=== PATIENT | female | born 2000 | race Caucasian/White ===

== ENCOUNTER 2019-03-03 21:58 | Emergency (ER) | payer MEDICAID, OTHER ==
[~2019-03-03] VITALS: Ht 157.5 cm; Wt 58.7 kg
[2019-03-03 22:03] VITALS: BP 135/92; PULSE 73; RESP 18; Ht 157.5 cm; Wt 58.7 kg
--- NOTE | 2019-03-04 01:25 | ERD ---
ER Documentation Chief Complaint Chief Complaint COUGH X'S 1 MONTH, SOB HPI This is a 18-year-old female presents emergency department with complaints of on and off cough for about a month, productive cough for the last 3 days. LMP: February 07, 2018. G0, . Denies headache, head injury, loss of consciousness, dizziness, neck pain, neck stiffness, throat pain, difficulty swallowing, difficulty breathing lying flat, shoulder pain, chest pain, back pain, abdominal pain, nausea, vomiting, constipation, diarrhea, urinary symptoms, or possibility being pregnan t, loss of bowel and bladder control, trauma, injury, falls, difficulty walking due to pain, numbness or tingling sensation, calf pain, recent travel, recent major surgery in the last 3 weeks, calf pain, recent long travel, recent exposure to any illness, recent antibiotic use in the last 3 months, fever, chills, seizures. Past medical history: Denies. Surgical history: Denies. Social: Denies smoking, use of alcoholic beverages, use of illegal drugs. ROS All systems reviewed and are negative except as per history of present illness. Medications Home Meds Active Scripts Benzonatate* (Tessalon Perle*) 100 Mg Capsule, 100 MG PO Q8H PRN for COUGH, #15 CAP Prov:PASILABANLAURI 03/04/19 Cyclobenzaprine Hcl* (Cyclobenzaprine Hcl*) 10 Mg Tablet, 10 MG PO TID PRN for MUSCLE SPASMS, #15 TAB Prov:JAMARIILALAURI TODD 03/04/19 Ibuprofen* (Motrin*) 600 Mg Tab, 600 MG PO Q6H PRN for PAIN AND OR ELEVATED TEMP, #30 TAB Prov:PASILABANLAURI 03/04/19 Azithromycin* (Zithromax*) 250 Mg Tablet, 250 MG PO .ZPACK DIRECTED, #6 TAB TAKE 500 MG (2 TABS) THE FIRST DAY THEN 250 MG (1 TAB) DAYS 2-5 Prov:PASILALAURI TODD F 03/04/19 Allergies Allergies: Coded Allergies: No Known Allergy (Unverified , 03/03/19) Physical Exam Vitals Physical Exam Head: Atraumatic Eyes: Normal Conjunctiva ENT: Normal External Ears, Nose and Mouth. Bilateral ears: TMs are not erythematous. No bleeding. No discharge. No hearing loss. No mastoid tenderness. Nose: There is no frontal or maxillary sinus tenderness palpation. Throat: Uvula is in midline and nondisplaced. Tonsils are +1 bilaterally without redness and without exudates. Tolerating secretions. Patent airway. Speaks full and clear sentences. No tripoding. Neck: Full range of motion. No meningismus. No nuchal rigidity. No signs of meningeal irritation. Resp: Clear to auscultation bilaterally. No accessory muscle use in breathing. Cardio: Regular rate and rhythm, no murmurs Abd: Soft, non tender, non distended. Normal bowel sounds. Negative Cline sign. Skin: No petechiae or rashes. Color appears normal for ethnicity. No skin tenting. No signs of severe dehydration. Back: No midline or flank tenderness Ext: No cyanosis, or edema Neur: Awake and alert. No neurological deficits. Psych: Normal Mood and Affect Results 24 hrs Laboratory Tests Test 03/04/19 01:53 03/04/19 01:54 POC Beta HCG, Qualitative NEGATIVE Bedside Urine pH (LAB) 5.0 Bedside Urine Protein (LAB) Negative Bedside Urine Glucose (UA) Negative Bedside Urine Ketones (LAB) Negative Bedside Urine Blood Trace-lysed Bedside Urine Nitrite (LAB) Negative Bedside Urine Leukocyte Esterase (L Negative Current Medications Medications Dose Sig/Honey Start Time Status Last (Trade) Ordered Route PRN Stop Time Admin Dose Reason Admin Ibuprofen 600 mg ONCE ONCE 03/04/19 DC 03/04/19 (Motrin) PO 02:30 03/04/19 02:25 02:31 10 mg ONCE ONCE 03/04/19 DC 03/04/19 Cyclobenzapri PO 02:30 03/04/19 02:25 ne HCl 02:31 (Flexeril) Procedures/MDM Diagnostic tests: POC urine : Negative. POC urine dipstick: Reviewed. Treatment: Motrin. Flexeril. Re-evaluation: Denies pain. Lung sounds are clear to auscultation. No drooling. No abdominal tenderness. No saddle anesthesia. No neurovascular deficits. No neurological deficits. Stated that she feels much better at this time and that she is ready to go home. Stated that she is comfortable to go home. Differential diagnosis I have low suspicion for sepsis, fractures, pneumonia, severe dehydration, bronchospasms. Final diagnosis: Bronchitis. Musculoskeletal pain. Prescription: Motrin. Tessalon Renu. Flexeril. Azithromycin. Follow-up with PCP in the next 24-48 hours. Come back here in the emergency department for any new symptoms or any worsening symptoms. All questions and concerns were answered. Patient and family members verbalized understanding and agreed with plan of care. Hemodynamically stable on discharge. Departure Diagnosis: Primary Impression: Bronchitis Additional Impressions: Muscle spasm Musculoskeletal pain Condition: Stable Additional Instructions: Follow-up with PCP in the next 24-48 hours. Come back here in the emergency department for any new symptoms or any worsening symptoms. LAURI SANDHU Mar 04, 2019 01:25
[2019-03-04] MEDS ORDERED: AZIT250T PO (02:05)
[2019-03-04] MEDS ORDERED: IBUP-1542 PO (02:05)
[2019-03-04] MEDS ORDERED: CYCL10TA7 PO (02:05)
[2019-03-04] MEDS ORDERED: BENZ-6 PO (02:06)
[2019-03-04] MEDS ORDERED: IBUPROFEN 600 MG TAB PO ONE (02:30)
[2019-03-04] MEDS ORDERED: CYCLOBENZAPRINE 10 MG TAB PO ONE (02:30)
== END 2019-03-04 02:27 | disposition home or self-care (01) ==
LOC: FTE 21:58
DX: J40 Bronchitis, not specified as acute or chronic (principal); M62.838 Other muscle spasm; M79.18 Myalgia, other site
CPT/HCPCS: 81003; 81025; Z7502; Z7610; 99283